=== PATIENT | male | born 1955 | race Caucasian/White ===

== ENCOUNTER 2016-11-07 10:58 | Inpatient (IN) | payer BC ==
--- NOTE | ~2016-11-07 | EKG ---
PATIENT: LIZETTE NEVES UNIT #: [id number] Ventricular Rate: 103 BPM Atrial Rate: 103 BPM P-R Interval: 174 ms QRS Duration: 82 ms Q-T Interval: 340 ms QTC Calculation(Bezet): 445 ms P [place]: 72 degrees Calculated R [place]: 54 degrees Calculated T [place]: 66 degrees Diagnosis Line: Sinus tachycardia Diagnosis Line: Premature atrial complexes Otherwise normal ECG Diagnosis Line: No previous ECGs available Diagnosis Line: Confirmed by MARCEL MONTEMAYOR MD ([id number]) on 11/09/2016 Diagnosis Line: 5:44:15 PM INTERPRETING MD: SIM FRANCES
--- NOTE | ~2016-11-07 | PN ---
Unit #: [id number] #: [id number] Patient: LIZETTE NEVES [id number] [facility] [address] [place] [address] [id number] I MR#: [id number] NAME: LIZETTE NEVES ROOM: [facility] Age: 61 Sex: M Admission Date: 11/07/2016 : 1955 Attending Physician: Duncan Snowden M.D. Admitting Physician: Duncan Snowden M.D. Primary Care Physician: Shreyas Wahl PROGRESS NOTES DATE OF SERVICE: 11/10/2016 SUBJECTIVE Mr. Neves is a 61-year-old white male, who was seen today and chart was reviewed, and case was discussed with the staff. He has been anxious, withdrawn, though has not shown any agitation or irritability and appears to be doing somewhat better. Meanwhile, he has been taking the medications and tolerating them fairly well. MENTAL STATUS EXAMINATION An elderly white male, who was casually dressed with fair personal hygiene, appears to be in no acute distress or discomfort. He was awake and alert on interaction with intact orientation. His mood was anxious with a congruent affect. His speech was slow and goal directed. He denies any suicidal or homicidal ideations. His insight and judgment remain slightly impaired. TREATMENT PLAN We will continue him on his current medications and treatment protocol. We will monitor his response and make further adjustments as needed. Dictated by... Anamika Issa/hamilton TD: 11/10/2016 23:03 JOB #: [id number] [facility] PROGRESS NOTES X Duncan Snowden MD PROGRESS NOTE
--- NOTE | ~2016-11-07 | PN ---
Unit #: [id number] #: [id number] Patient: LIZETTE NEVES [id number] [facility] [address] [place] [address] [id number] MR#: [id number] NAME: LIZETTE NEVES ROOM: [facility] Age: 61 Sex: M Admission Date: 11/07/2016 : 1955 Attending Physician: Duncan Snowden M.D. Admitting Physician: Duncan Snowden M.D. Primary Care Physician: Shreyas Wahl PROGRESS NOTES DATE OF SERVICE 11/09/2016 DISCUSSION Mr. Neves is a 61-year-old white male with alcohol dependence and mood disorder who was seen today. Chart was reviewed and case was discussed with the staff. He has had a rough day yesterday with increasing confusion, restlessness, anxiety, and irregular heartbeat, and EGD was done. Meanwhile, he has been compliant with the treatment recommendations and has been taking the medications and tolerating them fairly well. MENTAL STATUS EXAMINATION An elderly white male who is casually dressed with fair personal hygiene, appears to be in no acute distress or discomfort. The patient was awake and alert with impaired attention and concentration. His mood is anxious with congruent affect. His speech is slow and goal-directed. He denies any suicidal or homicidal ideations and also denies any auditory or visual hallucinations. His insight and judgment remain slightly impaired. TREATMENT PLAN 1. We will continue him on his current medications and treatment protocol. We will monitor his response to medications and make further adjustments as needed. 2. We will continue to follow up. Dictated by... Anamika Issa/niurkag TD: 11/10/2016 10:04 JOB #: [id number] Unit #: [id number] #: [id number] Patient: LIZETTE NEVES PROGRESS NOTES X Duncan Snowden MD PROGRESS NOTE
--- NOTE | ~2016-11-07 | PN ---
Unit #: [id number] #: [id number] Patient: LIZETTE NEVES [id number] [facility] [address] [place] [address] [id number] MR#: [id number] NAME: LIZETTE NEVES ROOM: [facility] Age: 61 Sex: M Admission Date: 11/07/2016 : 1955 Attending Physician: Duncan Snowden M.D. Admitting Physician: Duncan Snowden M.D. Primary Care Physician: Shreyas Wahl PROGRESS NOTES DATE 11/08/2016 DISCUSSION Mr. Neves is a 61-year-old, white male who was seen today and chart was reviewed and case was discussed with the staff. He has been anxious, withdrawn and seclusive to himself. Meanwhile, he has been cooperative with treatment recommendations. He has been taking the medication and tolerating them fairly well with no reported side effects. MENTAL STATUS EXAM An elderly white male who was casually dressed with fair personal hygiene, appears to be in distress or discomfort. He was awake and alert with impaired attention and concentration. His mood was anxious with congruent affect. His speech was slow and restricted in content. He denies any suicidal or homicidal ideation. His insight and judgement remains slightly impaired. TREATMENT PLAN 1. We will continue him on his current medications and detox protocol. We will monitor his response and make further adjustments as needed. 2. We will continue to follow up. Dictated by... Anamika Issa/rao TD: 11/08/2016 21:33 JOB #: [id number] Unit #: [id number] #: [id number] Patient: LIZETTE NEVES PROGRESS NOTES X Duncan Snowden MD X PROGRESS NOTE
--- NOTE | ~2016-11-07 | PA ---
Unit #: [id number] #: [id number] Patient: LIZETTE NEVES [id number] [place] [address] [id number] I MR#: [id number] NAME: LIZETTE NEVES ROOM: [facility] Age: 61 Sex: M Admission Date: 11/07/2016 : 1955 Date of Assessment: 11/07/2016 Attending Physician: Duncan Snowden M.D. Admitting Physician: Duncan Snowden M.D. Primary Care Physician: Shreyas Wahl PSYCHIATRIC ASSESSMENT IDENTIFYING INFORMATION The patient is a 61-year-old white male admitted for alcohol detox. INFORMANT(S) Patient. RELIABILITY Good. CHIEF COMPLAINT Drinking too much. HISTORY OF PRESENT ILLNESS The patient is a 61-year-old white male admitted to the [address] [place] [address] with increasing alcohol use. The patient reports that he drinks a fifth of hard liquor on a daily basis and on weekend often drinks as much as two fifths of hard liquor. He also reports occasional abuse of illicitly obtained alprazolam. He was last admitted to this facility under the care of Dr. Snowden in 2012. At that time, he was diagnosed with depressive disorder but is currently on no antidepressant medication though he continues on Seroquel. The patient currently denies suicidal or homicidal ideation. Denies any recent changes in sleep or appetite. He lives with his and is employed at [employer]. PAST PSYCHIATRIC HISTORY As above. FAMILY HISTORY Noncontributory. SOCIAL HISTORY The patient lives with his . He reports substance use as noted previously and his employment history is described above. MEDICAL HISTORY The patient suffers from hypertension, dyslipidemia and diabetes mellitus. MEDICATION HISTORY 1. Glimepiride. 2. Seroquel. 3. Norvasc. 4. Metoprolol. Unit #: [id number] #: [id number] Patient: LIZETTE NEVES 5. Tradjenta. 6. Welchol. ALLERGIES None. MENTAL STATUS EXAM At this time, reveals the patient to be a well-developed, well-nourished white male appearing stated age. He is in no apparent physical distress at the time of examination. He is awake, alert, oriented in all spheres. His mood is euthymic. His affect congruent. Speech is generally relevant and coherent. There are no gross deficits in memory or cognition noted. Intelligence is judged to be in the average range based on fund of knowledge. The patient is cooperative throughout the interview. He is currently reporting no suicidal or homicidal ideation or psychotic features. Judgement and insight appear to be intact. ASSETS AND LIABILITIES Assets, motivation for change. Liabilities, lack of resources, health issues. ADMITTING DIAGNOSES 1. Alcohol use disorder. 2. Diabetes mellitus. 3. Hypertension. 4. Dyslipidemia. PSYCHIATRIC PLAN/TREATMENT GOALS The patient remains hospitalized for safety and stabilization. Routine detoxification protocol for opioids has been initiated and home medications are re-continued. ESTIMATED LENGTH OF STAY Three to five days with followup to take place through the auspices of community mental health resources. Dictated by... Michael King M.D. MATT/felipe TD: 11/07/2016 15:54 JOB #: [id number] PSYCHIATRIC ASSESSMENT X Michael King MD X PSYCHIATRIC ASSESSMENT
--- NOTE | ~2016-11-07 | HP ---
Unit #: [id number] #: [id number] Patient: ANTIONETTE NEVES [id number] [place] [address] [id number] I MR#: [id number] NAME: ANTIONETTE NEVES ROOM: [facility] Age: 61 Sex: M Admission Date: 11/07/2016 : 1955 Attending Physician: Duncan Snowden M.D. Admitting Physician: Duncan Snowden M.D. Primary Care Physician: Shreyas Wahl HISTORY AND PHYSICAL HISTORY OF PRESENT ILLNESS Antionette is a 61 year old admitted to [facility] because of his abuse of alcohol. PAST MEDICAL HISTORY 1. Long history of alcohol abuse 2. High blood pressure 3. Diabetes mellitus 4. Hyperlipidemia PAST SURGICAL HISTORY Small bowel resection. ALLERGIES No known drug allergies. SOCIAL HISTORY He does not smoke. Drinks at least a fifth of liquor on a daily basis and denies illicit drug use. FAMILY HISTORY Medically noncontributory. REVIEW OF SYSTEMS CONSTITUTIONAL: No fever or chills. HEENT: Denies any sore throat, ear pain or runny nose. CARDIOVASCULAR: Denies chest pain, irregular heart rhythm or palpitations. CHEST: Denies shortness of breath or cough. No hemoptysis. GASTROINTESTINAL: Denies nausea, vomiting, diarrhea or chronic constipation. ENDOCRINE: Denies history of increased thirst or urination. No recent significant weight loss or gain. GENITOURINARY: Denies dysuria, frequency, or hematuria. SKIN: Denies any rashes. HEMATOLOGIC: Denies history of increased bleeding or bruising. MUSCULOSKELETAL: Denies any hot, swollen joints. No generalized muscle pain. NEUROLOGIC: Denies problems with vision or speech. No frequent, severe headaches. No numbness, tingling or weakness in any extremities. Denies loss of bladder or bowel control. CURRENT MEDICATIONS Unit #: [id number] #: [id number] Patient: ANTIONETTE NEVES 1. Detox protocol 2. Norvasc 10 mg daily 3. Amaryl 8 mg daily 4. Tradjenta 5 mg daily 5. WelChol 1875 b.i.d. 6. Lopressor 50 mg b.i.d. PHYSICAL EXAMINATION GENERAL: Alert, well-nourished, in no apparent distress. VITAL SIGNS: Blood pressure 160/70, heart rate 80, respirations 16, temperature 98.6. WEIGHT: 190 pounds. HEIGHT: 6'1". SKIN: Warm and dry without rash or lesion. HEENT: Normocephalic. TMs not viewed. Oral and nasal passages clear. Conjunctivae clear. Left pupil is round and reactive. Right pupil is mcghee holed and not reactive. Extraocular movements intact. NECK: Supple without lymphadenopathy or thyromegaly. HEART: Regular rate and rhythm without murmur. LUNGS: Clear. ABDOMEN: Soft, nontender. : Not done. EXTREMITIES: No evidence of cyanosis, clubbing or edema. Moves all extremities without focal deficit. NEUROLOGICAL: Grossly within normal limits. Cranial Nerves: II: Visual little are intact. III, IV AND : Extraocular movements are intact. Left pupil is round and reactive. Right pupil is mcghee holed and nonreactive. V: Facial sensation is grossly normal. VII: Facial movements and expression are normal. VIII: Auditory acuity grossly intact. IX, X: Uvula is midline. Phonation is normal. XI: Patient shrugs shoulders and turns head normally. XII: Tongue protrudes in the midline. Sensory and Motor Function: Sensory and motor sensation is grossly normal. Motor: moves all extremities well. Coordination: Gait is normal. Deep Tendon Reflexes: Intact. IMPRESSION 1. Psychiatric admission 2. History of alcohol abuse. 3. High blood pressure. 4. Diabetes mellitus. 5. Hyperlipidemia. 6. Injury to his eye as a child leaving his pupil mcghee holed. RECOMMENDATIONS PSYCHIATRIC: Per psychiatrist. MEDICAL: 1. I see no contraindications to participating in facility's activities. 2. Detox per protocol. 3. Continue Norvasc, Amaryl, Tradjenta, WelChol and Lopressor. MEDICAL PROGNOSIS Good. MEDICAL CONDITION Stable. Unit #: [id number] #: [id number] Patient: ANTIONETTE NEVES Dictated by... Nancie Huang P.A.-C. for Anamika Hanson/rao TD: 11/08/2016 02:50 JOB #: [id number] HISTORY AND PHYSICAL X Nancie Huang HISTORY AND PHYSICAL
--- NOTE | ~2016-11-07 | CO ---
Unit #: [id number] #: [id number] Patient: LIZETTE NEVES [id number] [place] [address] [id number] I MR#: [id number] NAME: LIZETTE NEVES ROOM: [facility] Age: 61 Sex: M Admission Date: 11/07/2016 : 1955 Attending Physician: Duncan Snowden M.D. Primary Care Physician: Shreyas Wahl CONSULTATION REPORT REASON FOR CONSULT Abnormal labs. SUBJECTIVE "I've been diabetic for at least 20 years and I'm on medication right now. I do have a doctor that I see out on [address] and she is sending me to an buildings and grounds supervisor as soon as I get out of here." OBJECTIVE Vital signs within normal limits. Patient is currently taking glimepiride 4 mg 1 p.o. b.i.d. and Tradjenta 5 mg p.o. daily. ASSESSMENT Long-term diabetes. PLAN Patient declines change in medications at this point. He will follow up with his buildings and grounds supervisor upon discharge. Dictated by... Murali Marinelli/felipe TD: 11/11/2016 18:45 JOB #: [id number] CONSULTATION REPORT X Ester Mcnally APR X CONSULTATION REPORT
--- NOTE | ~2016-11-07 | PN ---
Unit #: [id number] #: [id number] Patient: LIZETTE NEVES [id number] [facility] [address] [place] [address] [id number] I MR#: [id number] NAME: LIZETTE NEVES ROOM: [facility] Age: 61 Sex: M Admission Date: 11/07/2016 : 1955 Attending Physician: Duncan Snowden M.D. Admitting Physician: Duncan Snowden M.D. Primary Care Physician: Shreyas Wahl PROGRESS NOTES DATE 11/11/2016 DISCUSSION Mr. Neves is a 61-year-old, white male who was seen today and chart was reviewed and case was discussed with the staff. He has been anxious, withdrawn, depressed and rather seclusive to himself. Meanwhile, he has been cooperative with the treatment recommendations. He has been taking the medication and tolerating them fairly well with no reported side effects. MENTAL STATUS EXAM An elderly white male who was casually dressed with fair personal hygiene, appears to be in no acute distress or discomfort. He was awake and alert on interaction with intact orientation. His mood was anxious with congruent affect. His speech was slow and goal directed. He denies any suicidal or homicidal ideation. His insight and judgement remains slightly impaired. TREATMENT PLAN 1. We will continue him on his current medications and treatment protocol. We will monitor his response to the medication and make further adjustments as needed. 2. We will continue to follow up. Dictated by... Anamika Issa/rao TD: 11/13/2016 00:45 JOB #: [id number] Unit #: [id number] #: [id number] Patient: LIZETTE NEVES PROGRESS NOTES X Duncan Snowden MD PROGRESS NOTE
--- NOTE | ~2016-11-07 | PN ---
Unit #: [id number] #: [id number] Patient: LIZETTE NEVES [id number] [facility] [address] [place] [address] [id number] I MR#: [id number] NAME: LIZETTE NEVES ROOM: [facility] Age: 61 Sex: M Admission Date: 11/07/2016 : 1955 Attending Physician: Duncan Snowden M.D. Admitting Physician: Duncan Snowden M.D. Primary Care Physician: Shreyas Wahl PROGRESS NOTES DATE 11/08/2016 DISCUSSION The patient has been scoring for Ativan until his most recent evaluation at 12 p.m. He last required Ativan this morning at 8 a.m. We continue his current detoxification regimen. Dictated by... Michael King M.D. CB/lisbeth TD: 11/08/2016 14:39 JOB #: [id number] [facility] PROGRESS NOTES X Michael King MD PROGRESS NOTE
--- NOTE | ~2016-11-07 | PA ---
Unit #: [id number] #: [id number] Patient: LIZETTE NEVES [id number] [facility] [address] [place] [address] [id number] I MR#: [id number] NAME: LIZETTE NEVES ROOM: [facility] Age: 61 Sex: M Admission Date: 11/07/2016 : 1955 Date of Assessment: 11/07/2016 Attending Physician: Duncan Snowden M.D. Admitting Physician: Duncan Snowden M.D. Primary Care Physician: Shreyas Wahl PSYCHIATRIC ASSESSMENT DATE OF SERVICE 11/07/2016. IDENTIFYING DATA Mr. Neves is a 61-year-old white male, who is a resident of [place], [place], and was self-referred to the hospital. CHIEF COMPLAINT "I've been drinking way too much." HISTORY OF PRESENT ILLNESS Mr. Neves is a 61-year-old white male, who was self-referred to the hospital, reporting history of alcohol dependence and "I'm drinking two fifth a week and 2 to 3 fifths on the weekend." His spouse stated "he has not been eating well and his eating has gotten worse and so he is not sleep some days and he wanted to after he has been drinking." The patient does report increasing depression, anxiety, irritability, restlessness, feelings of hopelessness and helplessness, but denies current suicidal ideations, intent, or plan. SUBSTANCE ABUSE HISTORY The patient reports history of alcohol dependence and reports that he has been having since he was 18 years old and currently has been drinking a fifth a day, but denies any other drug abuse. PAST PSYCHIATRIC HISTORY The patient has not had any prior inpatient or outpatient psychiatric treatment. Review of the medical records indicate that currently he is on Seroquel from his primary care physician. PAST MEDICAL HISTORY Hypertension, dyslipidemia. ALLERGIES No known medication allergies. PERSONAL AND SOCIAL HISTORY A 61-year-old white male, who reports that he is and lives at home with his and has fairly decent social support system. MENTAL STATUS EXAMINATION Middle-aged white male who was casually dressed with fair personal hygiene, appears to be in no acute distress or discomfort. He was awake Unit #: [id number] #: [id number] Patient: LIZETTE NEVES and alert on interaction with intact orientation to time, place, and person. His mood was anxious and depressed with a congruent affect. His speech was slow and goal directed. He denies any suicidal or homicidal ideations, and also denies any auditory or visual hallucinations. His insight and judgment remain significantly impaired. DIAGNOSTIC IMPRESSION Psychiatric: Alcohol dependence, moderate and acute withdrawals; alcohol-induced mood disorder. Medical: Hypertension and dyslipidemia. Stressors: Moderate psychosocial stressors. TREATMENT PLAN 1. The patient has presented with history of substance abuse and mood disorder, and has been decompensating and will need inpatient hospitalization for detoxification, safety, and stabilization. We will start him on detox protocol. We will closely monitor for any worsening withdrawal symptoms. 2. Supportive therapy was provided to the patient. 3. Safe, structured, and nourishing environment will be provided. ESTIMATED LENGTH OF STAY 4 to 5 days. ABILITY TO HELP SELF Limited. WILLINGNESS TO HELP SELF The patient appears to be willing to help self. STRENGTHS 1. Communicative. 2. Cooperative. PROBLEMS 1. Chronic dysphoric symptoms. 2. Chronic chemical dependency. 3. Poor social support system. DISCHARGE CRITERIA This will be contingent upon the patient's ability to go through detox without having any significant withdrawal symptoms as well as his ability to stay safe to himself and others, particularly after discharge from the hospital. Dictated by... Anamika Issa/hamilton TD: 11/08/2016 23:59 JOB #: [id number] Unit #: [id number] #: [id number] Patient: LIZETTE NEVES PSYCHIATRIC ASSESSMENT X Duncan Snowden MD X PSYCHIATRIC ASSESSMENT
--- NOTE | ~2016-11-07 | DS ---
Unit #: [id number] #: [id number] Patient: [facility]ZETTE NEVES [id number] [facility] [place] [address] [id number] I MR#: [id number] NAME: LIZETTE NEVES ROOM: [facility] Age: 61 Sex: M Admission Date: 11/07/2016 : 1955 Discharge Date: 11/13/2016 Attending Physician: Duncan Snowden M.D. Primary Care Physician: Shreyas Wahl DISCHARGE SUMMARY IDENTIFYING DATA Mr. Neves is a 61-year-old white male, who was self-referred to the hospital. DISCHARGE DIAGNOSES Psychiatric: Alcohol dependence, moderate and acute withdrawals; alcohol-induced mood disorder. Medical: Hypertension, dyslipidemia, diabetes mellitus. Stressors: Moderate psychosocial stressors. HISTORY OF PRESENT ILLNESS Please see initial psychiatric evaluation for details. PAST PSYCHIATRIC HISTORY Please see initial psychiatric evaluation for details. PAST MEDICAL HISTORY Please see initial psychiatric evaluation for details. HOSPITAL COURSE The patient was admitted to the adult psychiatric unit at [facility] and was oriented to the hospital environment. Routine p.r.n. medications were initiated, and he was started back on his home medications and detox protocol was initiated as well. He was taking the medications regularly and was tolerating them fairly well and was able to show a decent and therapeutic response and was willing to continue treatment on an outpatient basis and as such, it was decided that he will be discharged home and will continue treatment on an outpatient basis. DISCHARGE MEDICATIONS None. DISCHARGE CONDITION Stable. PROGNOSIS Fair. Dictated by... Anamika Issa/hamilton Unit #: [id number] #: [id number] Patient: LIZETTE NEVES TD: 11/13/2016 07:30 JOB #: [id number] DISCHARGE SUMMARY X Duncan Snowden MD X DISCHARGE SUMMARY
--- NOTE | ~2016-11-07 | PN ---
Unit #: [id number] #: [id number] Patient: LIZETTE NEVES [id number] [facility] [address] [place] [address] [id number] I MR#: [id number] NAME: LIZETTE NEVES ROOM: [facility] Age: 61 Sex: M Admission Date: 11/07/2016 : 1955 Attending Physician: Duncan Snowden M.D. Admitting Physician: Duncan Snowden M.D. Primary Care Physician: Shreyas Wahl PROGRESS NOTES DATE OF SERVICE: 11/12/2016 SUBJECTIVE Mr. Neves is a 61-year-old white male who was seen today and chart was reviewed and case was discussed with the staff. He has been anxious, withdrawn, and rather seclusive to himself. Meanwhile, he has been cooperative with treatment recommendations and has been taking the medications and tolerating them fairly well with no reported side effects. MENTAL STATUS EXAMINATION An elderly white male who was casually dressed with fair personal hygiene, appears to be in no acute distress or discomfort. He was awake and alert with impaired attention and concentration. His mood was anxious with a congruent affect. He denies any suicidal or homicidal ideations. His insight and judgment remain slightly impaired. TREATMENT PLAN 1. We will continue him on his current medications and treatment protocol. We will monitor his response to the medications and make further adjustments as needed. 2. We will continue to follow up. Dictated by... Anamika Issa/hamilton TD: 11/12/2016 12:40 JOB #: [id number] [facility] PROGRESS NOTES X Duncan Snowden MD PROGRESS NOTE
[2016-11-09 10:21] LABS: BASOPHIL% 0.5 % (0-2.5); EOSINOPHIL# 0.1 X10e3 (0-0.7); EOSINOPHIL% 2.1 % (0.0-7.0); HEMATOCRIT 37.7 % (38.0-50.0); HEMOGLOBIN 12.8 gm/dL (13.0-16.0); LYMPHOCYTE# 1.4 X10e3 (1.0-3.5); LYMPHOCYTE% 33.1 % (17.0-45.0); MEAN CELL VOLUME 87.5 FL (83-96); MEAN CORPUSCULAR HEMOGLOBIN 29.8 PG (28-34); MEAN PLATELET VOLUME 8.7 FL (6.5-11.5); MONOCYTE# 0.5 X10e3 (0-1.0); NEUTROPHIL# 2.1 X10e3 (1.5-7.1); NEUTROPHIL% 51.3 % (40-75); PLATELET COUNT 140 X10e3 (140-420); RED BLOOD COUNT 4.31 X10e (3.90-5.60); RED CELL DISTRIBUTION WIDTH 12.2 % (11.0-15.5); WHITE BLOOD COUNT 4.1 X10e3 (4.0-10.5)
[2016-11-09 10:27] LABS: DIFF IND NO
[2016-11-09 10:37] LABS: THYROID STIMULATING HORMONE 2.98 uIU/ml (0.34-5.60)
[2016-11-09 10:42] LABS: ALBUMIN SERUM 3.6 g/dL (3.5-5.0); ALKALINE PHOSPHATASE 81 U/L (32-92); ALT (SGPT) 50 U/L (10-40); AST (SGOT) 38 U/L (10-42); BILIRUBIN,TOTAL 1.2 mg/dL (0.2-2.0); BLOOD UREA NITROGEN 23 mg/dL (9-23); CALCIUM SERUM 9.5 mg/dL (8.4-10.2); CARBON DIOXIDE 29 mmol/L (22-31); CHLORIDE 98 mmol/L (100-111); CREATININE SERUM 1.1 mg/dL (0.6-1.4); GLOM FILT RATE Estimated ABOVE60 mL/min (>60); GLUCOSE FASTING 328 mg/dL (70-110); POTASSIUM 4.7 mmol/L (3.5-5.1); PROTEIN TOTAL SERUM 6.6 g/dL (6.0-8.3); SODIUM 136 mmol/L (135-145)
[2016-11-09 10:44] LABS: FREE THYROXIN (T4) 0.91 ng/dL (0.58-1.64)
[2016-11-10 09:36] LABS: URINE APPEARANCE CLOUDY; URINE BILIRUBIN NEG (NEG); URINE BLOOD NEG (NEG); URINE COLOR DK YELLOW; URINE GLUCOSE >1000 MG/DL (NEG); URINE KETONE NEG (NEG); URINE LEUKOCYTE ESTERASE NEG (NEG); URINE NITRATE NEG (NEG); URINE PROTEIN NEG (NEG); URINE SPECIFIC GRAVITY 1.021 (1.003-1.035); URINE UROBILINOGEN 0.2 MG/DL (NEG)
[2016-11-10 09:58] LABS: AMPHETAMINE NEG (NEG); BARBITURATES NEG (NEG); BENZODIAZEPINES POS (NEG); COCAINE NEG (NEG); MARIJUANA NEG (NEG); OPIATES NEG (NEG); TRICYCLIC ANTIDEPRESSANTS POS (NEG); U METHADONE NEG (NEG)
== END 2016-11-13 10:48 | disposition home or self-care (01) | DRG 897 ==
LOC: P1E 10:58 → POF 12:39 → P1E 12:42
PROVIDERS: Specialist
PROC: HZ2ZZZZ Detoxification Services for Substance Abuse Treatment (ICD-10-PCS; principal; 2016-11-07)
DX: F10.239 Alcohol dependence with withdrawal, unspecified (principal); F10.24 Alcohol dependence with alcohol-induced mood disorder; F17.210 Nicotine dependence, cigarettes, uncomplicated; E11.9 Type 2 diabetes mellitus without complications; E78.5 Hyperlipidemia, unspecified
CPT/HCPCS: 80053; 80307; 81003; 84439; 84443; 85025; 86592; 93005